=== PATIENT | female | born 1960 | race Caucasian/White ===

== ENCOUNTER → 2019-09-03 | Outpatient (CLI) | payer MEDICARE ==
--- NOTE | 2019-09-05 14:38 | MAM ---
EXAM DESCRIPTION: 3D Screening BILATERAL : Digital Mammography. CLINICAL HISTORY: 59 years Female ANNUAL SCREENING no complaints. Menarche age 16. Childbirth age 29. Menopause age 52. No HRT. Lifetime risk of developing breast cancer (Tyrer-Cuzick model)(%): 9.1. COMPARISON: Baseline study at this facility.. No prior reports available. TECHNIQUE: Bilateral CC and MLO projection full-field images, digital tomosynthesis mammographic technique. Bilateral digital 2-D full-field MLO images. CAD available for 2-D images. FINDINGS: The breast parenchymal density pattern is: Heterogeneously dense breast tissue, which may obscure small masses. No skin thickening or nipple retraction. Bilateral posterior skin mole markers. Solitary microcalcifications. Partially circumscribed mass in the middle third of the left breast approximately 6 cm from the nipple at the 3:30 position. Same density as the surrounding fibroglandular tissues. Second mass partially circumscribed, same density as the fibroglandular tissues, 6.5 cm from the nipple, in the middle third similar level. No new focal, stellate mass or density, focal asymmetry , and no suspicious microcalcifications right breast IMPRESSION: BI-RADS CATEGORY: 0 - INCOMPLETE- Need additional imaging evaluation. RECOMMENDATIONS: FOLLOW-UP: Recall for additional imagin-D and tomosynthesis full Field images. Lateral medial projection left breast. Directed left breast ultrasound.. Written communication concerning the IMPRESSION and Follow-up, will be mailed to the patient and referring health care provider. Electronically signed by: Mundo Ovalle MD 09/05/2019 2:37 PM CDT
== END ==
LOC: MAMMO 07:55
PROVIDERS: ATTEND Nurse Practitioner Family
DX: Z12.31 Encounter for screening mammogram for malignant neoplasm of breast (principal)